=== PATIENT | female | born 1955 | race Caucasian/White ===

== ENCOUNTER 2021-02-28 07:25 | Day surgery (SDC) | payer OTHER ==
[2021-02-24 15:01] LABS: Absolute Lymphocytes (CBC) 1.4 K/uL (0.7-4.9); Basophils % 0.6 % (0-1.3); Hematocrit 37.9 % (36.0-45.0); Lymphocytes % 17.9 % (15.3-44.8); MPV 8.5 fL (7.6-11.3); RBC Red Blood Cell Count 4.37 M/uL (3.86-4.86)
--- NOTE | 2021-02-24 15:05 | RAD REPORT ---
EXAM DESCRIPTION: Lavinia Kinsey (2 Views)02/24/2021 2:54 pm CLINICAL HISTORY: Preop for colonoscopy COMPARISON: 2008 FINDINGS: The lungs appear clear of acute infiltrate. The heart is normal size IMPRESSION: No acute abnormalities displayed
[2021-02-28] MEDS: Ringers Lactate 1,000 ML IV ONE ×2 (07:59→08:17)
[2021-02-28] MEDS ORDERED: propofoL 200 MG/20 ML VIAL IV ONE (08:34)
[2021-02-28] MEDS ORDERED: LIDOCAINE 1% MPF 5 ML VIAL ONE (08:34)
--- NOTE | 2021-02-28 08:59 | ENDO RPT ---
[address], [id number] COLONOSCOPY PROCEDURE REPORT EXAM DATE: 02/28/2021 PATIENT NAME: Heather Sanchez MR #: [id number] BIRTHDATE: 1955 ATTENDING: Surya Hahn M.D. STATUS: outpatient ETCH OPERATOR SEMICONDUCTOR WAFERS: Yohana LOPEZ and Kaylyn Zurita INDICATIONS: The patient is a 65 yr old Female here for a colonoscopy due to colon cancer screening PROCEDURE PERFORMED: Colonoscopy MEDICATIONS: Per Anesthesia. ESTIMATED BLOOD LOSS: None CONSENT: The patient understands the risks and benefits of the procedure and understands that these risks include, but are not limited to: sedation, allergic reaction, infection, perforation and/or bleeding. Alternative means of evaluation and treatment include, among others: physical exam, x-rays, and/or surgical intervention. The patient elects to proceed with this endoscopic procedure. DESCRIPTION OF PROCEDURE: During intra-op preparation period all mechanical medical equipment was checked for proper function. Hand hygiene and appropriate measures for infection prevention was taken. Procedure, possible complications, alternatives including, but not limited to possibility of bleeding, perforation, tear, infection, sepsis, need for surgery, need for blood transfusion, were explained to the patient. After the risks, benefits and alternatives of the procedure were thoroughly explained, Informed consent was verified, confirmed and timeout was successfully executed by the treatment team. The patient was placed in the left lateral position. A digital rectal exam was performed and revealed no abnormalities of the rectum. After appropriate level of anesthesia, the scope was passed. The EC-[id number] ([id number]) endoscope was introduced through the anus and advanced to the cecum, which was identified by the ileocecal valve. The quality of the prep was good. The instrument was then slowly withdrawn as the colon was fully examined. Scope withdrawal time was 17 minutes. COLON FINDINGS: Diverticula was found in the sigmoid colon. The opening was small. Retroflexed views revealed no abnormalities and Retroflexed views revealed small hemorrhoids. The scope was then completely withdrawn from the patient and the procedure terminated. ADVERSE EVENTS: There were no complications. IMPRESSIONS: Diverticula in the sigmoid colon RECOMMENDATIONS: 1. follow-up: office 1 week(s) 2. increase dietary water 3. no seeds in diet 4. fiber rich diet RECALL: Return in 10 year(s) for Colonoscopy. Surya Hahn M.D. eSigned: Surya Hahn M.D. 02/28/2021 8:58 AM cc: Anabella Simpson M.D. CPT CODES: ICD9 CODES: PATIENT NAME: Heather Sanchez MR#: [id number]
[2021-02-28 09:18] VITALS: TEMP 97.6
[2021-02-28 10:03] VITALS: BP 124/71; O2SAT 100
== END 2021-02-28 09:30 | disposition home health service (06) ==
LOC: OR 07:25
PROVIDERS: ATTEND Surgery
PROC: 0DJD8ZZ Inspection of Lower Intestinal Tract, Via Natural or Artificial Opening Endoscopic (ICD-10-PCS; principal; 2021-02-28 08:30)
DX: Z12.11 Encounter for screening for malignant neoplasm of colon (principal); K64.8 Other hemorrhoids; K57.30 Diverticulosis of large intestine without perforation or abscess without bleeding; Z20.822 Contact with and (suspected) exposure to COVID-19
CPT/HCPCS: 93005; 85025; 80048; 36415; 71046; 45378; U0003; J2704; J7120